=== PATIENT | male | born 1990 | race Hispanic/Latino ===

== ENCOUNTER 2019-01-29 23:41 | Emergency (ER) | payer SELFPAY | END 2019-01-29 23:57 | LOC: ERS 23:41 | DX: S30.0XXA Contusion of lower back and pelvis, initial encounter (principal); R68.2 Dry mouth, unspecified; F17.210 Nicotine dependence, cigarettes, uncomplicated; Y04.0XXA Assault by unarmed brawl or fight, initial encounter | CPT/HCPCS: 99283 ==